=== PATIENT | male | born 1975 | race Caucasian/White ===

== ENCOUNTER 2017-09-07 09:02 | Emergency (ER) | payer OTHER, SELFPAY ==
[2017-09-07 09:21] VITALS: BP 144/78; PULSE 85; RESP 16; TEMP 98.8; O2SAT 98
--- NOTE | 2017-09-07 09:42 | C.PDOC ---
History Of Present Illness 42 y/o M c no PMHx p/w dysuria x 5 days associated with bilateral flank pain and suprapubic pain. Denies fever, chills, dyspnea, nausea, vomiting, hematuria , abnormal urine. Patient states sexually active with only. Denies penile lesions. Time Seen by Provider: 09/07/17 09:19 Chief Complaint (Nursing): Male Genitourinary Past Medical History Vital Signs: Last Vital Signs Temp 98.8 F 09/07/17 09:19 Pulse 85 09/07/17 09:19 Resp 16 09/07/17 09:19 BP 144/78 09/07/17 09:19 Pulse Ox 98 09/07/17 09:42 Family History: States: No Known Family Hx - Social History Hx Alcohol Use: No Hx Substance Use: No - Immunization History Hx Tetanus Toxoid Vaccination: No Hx Influenza Vaccination: No Hx Pneumococcal Vaccination: No Review Of Systems Except As Marked, All Systems Reviewed And Found Negative. Constitutional: Negative for: Fever Respiratory: Negative for: Shortness of Breath Physical Exam - Physical Exam Additional Physical Exam Comments: Gen: NAD Head: NC Eyes: PERRL ENT: MMM Neck: Supple Chest: No tenderness CV: Regular rate Lungs: CTA b/l Abd: Soft, suprapubic tenderness Back: No CVA tenderness : No penile lesions, no testicular tenderness or swelling. No hernias Extremities: No swelling Neuro: Alert ED Course And Treatment O2 Sat by Pulse Oximetry: 98 Medical Decision Making Medical Decision Making: FINDINGS: LOWER THORAX: Unremarkable. LIVER: Hepatic steatosis. No gross lesion or ductal dilatation. GALLBLADDER AND BILE DUCTS: Unremarkable. PANCREAS: Unremarkable. No gross lesion or ductal dilatation. SPLEEN: Unremarkable. ADRENALS: Unremarkable. No mass. KIDNEYS AND URETERS: Unremarkable. No hydronephrosis. No solid mass. VASCULATURE: Unremarkable. No aortic aneurysm. BOWEL: Unremarkable. No obstruction. No gross mural thickening. APPENDIX: Unremarkable. Normal appendix. PERITONEUM: Small fat containing left inguinal hernia. Small fat containing umbilical hernia. No free fluid. No free air. LYMPH NODES: Unremarkable. No enlarged lymph nodes. BLADDER: Underdistended, limiting evaluation for wall thickening. Perivesicular stranding. REPRODUCTIVE: Unremarkable. BONES: No acute fracture. OTHER FINDINGS: None. IMPRESSION: Perivesicular stranding raises suspicion for cystitis. Clinical correlation is recommended. No urolithiasis or evidence of recently passed genitourinary calculus. Additional incidental findings as above. Will start on Cipro, culture sent, f/u Urology, return to ED for worsening fever , vomiting, dyspnea. Disposition - Disposition Referrals: Jarred Conner MD [Staff Provider] - Disposition: HOME/ ROUTINE Disposition Time: 10:51 Condition: STABLE Prescriptions: Ciprofloxacin [Cipro] 500 mg PO BID #14 tab Instructions: Acute Cystitis (DC) Forms: [facility] (Lao) - Clinical Impression Clinical Impression: Cystitis
[2017-09-07 09:50] LABS: URINE BILIRUBIN NEGATIVE (NEGATIVE); URINE BLOOD NEGATIVE (NEGATIVE); URINE CLARITY Hazy (Clear); URINE COLOR Yellow (YELLOW); URINE GLUCOSE (UA) NORMAL (Normal); URINE LEUKOCYTE ESTERASE NEG Leu/uL (Negative); URINE PROTEIN NEGATIVE (NEGATIVE); URINE UROBILINOGEN NORMAL mg/dL (0.2-1.0)
--- NOTE | 2017-09-07 10:37 | CT ---
PROCEDURE: CT Abdomen and Pelvis without intravenous contrast HISTORY: flank pain COMPARISON: None. TECHNIQUE: Contiguous images were obtained from the domes of the diaphragms to the upper thighs without the administration of intravenous contrast. Oral contrast was not administered. Radiation dose: Total exam DLP = 637.4 mGy-cm. This CT exam was performed using one or more of the following dose reduction techniques: Automated exposure control, adjustment of the mA and/or kV according to patient size, and/or use of iterative reconstruction technique. FINDINGS: LOWER THORAX: Unremarkable. LIVER: Hepatic steatosis. No gross lesion or ductal dilatation. GALLBLADDER AND BILE DUCTS: Unremarkable. PANCREAS: Unremarkable. No gross lesion or ductal dilatation. SPLEEN: Unremarkable. ADRENALS: Unremarkable. No mass. KIDNEYS AND URETERS: Unremarkable. No hydronephrosis. No solid mass. VASCULATURE: Unremarkable. No aortic aneurysm. BOWEL: Unremarkable. No obstruction. No gross mural thickening. APPENDIX: Unremarkable. Normal appendix. PERITONEUM: Small fat containing left inguinal hernia. Small fat containing umbilical hernia. No free fluid. No free air. LYMPH NODES: Unremarkable. No enlarged lymph nodes. BLADDER: Underdistended, limiting evaluation for wall thickening. Perivesicular stranding. REPRODUCTIVE: Unremarkable. BONES: No acute fracture. OTHER FINDINGS: None. IMPRESSION: Perivesicular stranding raises suspicion for cystitis. Clinical correlation is recommended. No urolithiasis or evidence of recently passed genitourinary calculus. Additional incidental findings as above.
== END 2017-09-07 10:57 | disposition home or self-care (01) ==
LOC: C.ER 09:02
DX: N30.90 Cystitis, unspecified without hematuria (principal)

== ENCOUNTER 2018-02-26 19:46 | Emergency (ER) | payer OTHER ==
[2018-02-26 19:56] VITALS: O2SAT 100
[2018-02-26 20:44] LABS: BASO # 0.1 K/uL (0.0-0.2); BASO % 0.5 % (0.0-2.0); EOS % 0.3 % (0.0-4.0); HEMOGLOBIN 14.2 g/dL (12.0-18.0); LYMPH # 6.1 K/uL (1.0-4.3); LYMPH % 44.8 % (20.0-40.0); MEAN CELL VOLUME 85.7 fL (80.0-94.0); MEAN CORPUSCULAR HEMOGLOBIN 30.3 pg (27.0-31.0); MEAN CORPUSCULAR HGB CONC 35.4 g/dL (33.0-37.0); MONO # 1.1 K/uL (0.0-0.8); NEUT # 6.3 K/uL (1.8-7.0); NEUT % 46.4 % (50.0-75.0); NRBC % 0.1 % (0.0-2.0); RBC 4.67 Mil/uL (4.40-5.90); RED CELL DISTRIBUTION WIDTH 13.2 % (11.5-14.5); WHITE BLOOD COUNT 13.7 K/uL (4.8-10.8)
[2018-02-26 20:48] LABS: ALB/GLOB RATIO 1.3 (1.0-2.1); ALBUMIN 4.6 g/dL (3.5-5.0); ALT/SGPT 38 U/L (21-72); AST/SGOT 35 U/L (17-59); BLOOD UREA NITROGEN 15 mg/dL (9-20); CALCIUM 9.4 mg/dl (8.6-10.4); GFR NON-AFRICAN AMERICAN > 60
[2018-02-26 21:27] VITALS: BP 130/85; PULSE 81; RESP 20; TEMP 98.6
--- NOTE | 2018-02-26 22:14 | C.PDOC ---
History Of Present Illness 42 year old male presents to the ER with a complaint of palpitations for the past month. Patient states when she has them she feels a slight sharp substernal pain. She is currently asymptomatic and denies SOB or other complaints. Chief Complaint (Nursing): Palpitations History Per: Patient History/Exam Limitations: no limitations Onset/Duration Of Symptoms: Days Current Symptoms Are (Timing): Still Present Recent travel outside of the [place]: No Past Medical History Reviewed: Historical Data, Nursing Documentation, Vital Signs Vital Signs: Last Vital Signs Temp 98.6 F 02/26/18 21:26 Pulse 81 02/26/18 21:26 Resp 20 02/26/18 21:26 BP 130/85 02/26/18 21: Pulse Ox 100 02/26/18 21:26 Family History: States: Unknown Family Hx - Social History Hx Alcohol Use: No Hx Substance Use: No - Immunization History Hx Tetanus Toxoid Vaccination: No Hx Influenza Vaccination: No Hx Pneumococcal Vaccination: No Review Of Systems Constitutional: Negative for: Fever, Chills Cardiovascular: Positive for: Palpitations Respiratory: Negative for: Cough, Shortness of Breath Gastrointestinal: Negative for: Nausea, Vomiting Skin: Negative for: Rash Neurological: Negative for: Weakness, Numbness Physical Exam - Physical Exam Appears: Non-toxic Skin: Normal Color, Warm, Dry, No Rash Head: Atraumatic, Normacephalic Eye(s): bilateral: Normal Inspection Oral Mucosa: Moist Neck: Normal, Supple Chest: Symmetrical, No Tenderness Cardiovascular: Rhythm Regular Respiratory: Normal Breath Sounds, No Rales, No Rhonchi, No Wheezing Gastrointestinal/Abdominal: Soft, No Tenderness Back: No CVA Tenderness Extremity: Normal ROM (x4) Neurological/Psych: Oriented x3, Normal Speech Gait: Steady ED Course And Treatment - Laboratory Results Result Diagrams: 02/26/18 20:32 02/26/18 20:32 O2 Sat by Pulse Oximetry: 100 (Room air) Pulse Ox Interpretation: Normal Progress Note: EKG, blood work, and CXR ordered. Disposition - Disposition Referrals: [facility] [Outside] [facility] at [facility] [Outside] Disposition: HOME/ ROUTINE Disposition Time: 21:15 Condition: GOOD Additional Instructions: LYNDON RODRIGES, thank you for letting us take care of you today. The emergency medical care you received today was directed at your acute symptoms. If you were prescribed any medication, please fill it and take as directed. It may take several days for your symptoms to resolve. Return to the Emergency Department if your symptoms worsen, do not improve, or if you have any other problems. Please contact your doctor or call one of the physicians/clinics you have been referred to that are listed on the Patient Visit Information form that is included in your discharge packet. Bring any paperwork you were given at discha rge with you along with any medications you are taking to your follow up visit. Our treatment cannot replace ongoing medical care by a primary care provider outside of the emergency department. Thank you for allowing the [facility] team to be part of your care today. Follow up with the clinic this week for outpatient care and re-evaluation. LYNDON RODRIGES, danyelle por dejarnos cuidar de vaishali ross. La atencin mdica de emergencia que recibi hoy se dirigi a willian sntomas agudos. Si le recetaron algn medicamento, llnelo y tmelo segn las indicaciones. Los sntomas pueden tardar varios marroquin en resolverse. Regrese al Departamento de Emergencias si willian sntomas empeoran, no mejoran o si tiene otros problemas. Comunquese con hernandez mdico o llame a dimitris de los mdicos / clnicas a los que damon sido referido que figuran en el formulario de Informacin de visita al paciente que se incluye en hernandez paquete de garrett. Lleve con vaishali a hernandez consulta de seguimiento toda la documentacin que recibi del garrett junto con los medicamentos que est tomando. Nuestro tratamiento no puede reemplazar la atencin mdica continua por parte de un proveedor de atencin primaria fuera del departamento de emergencias. Danyelle por permitir que el equipo de [facility] sea parte de hernandez atencin cody. Kamlesh un seguimiento con la clnica esta semana para la atencin ambulatoria y la reevaluacin. Instructions: Palpitations (DC) Forms: Gen Discharge Inst Micronesian, [facility] (Micronesian) Print Language: HUNGARIAN - Clinical Impression Clinical Impression: Palpitations - Scribe Statement The provider has reviewed the documentation as recorded by the Scribe Christian Kwok All medical record entries made by the Scribe were at my direction and personally dictated by me. I have reviewed the chart and agree that the record accurately reflects my personal performance of the history, physical exam, medical decision making, and the department course for this patient. I have also personally directed, reviewed, and agree with the discharge instructions and disposition.
--- NOTE | 2018-02-27 07:29 | RAD ---
Chest x-ray single frontal view HISTORY: Chest pain. COMPARISON: None available. FINDINGS: Mild venous congestion. Right hilar prominence. Heart size within normal limits. Degenerative changes in the spine and shoulders. IMPRESSION: Mild venous congestion. Right hilar prominence.
--- NOTE | 2018-02-27 13:13 | CARD ---
APPROVED REPORT Date of service: 02/26/2018 EKG Measurement Heart [id number] <Conclusion> Normal sinus rhythm Normal ECG
== END 2018-02-26 21:40 | disposition home or self-care (01) ==
LOC: C.ER 19:46
DX: R00.2 Palpitations (principal)

== ENCOUNTER 2018-06-10 10:18 | Emergency (ER) | payer OTHER ==
[2018-06-10 10:37] VITALS: BMI 28.9
--- NOTE | 2018-06-10 10:42 | C.PDOC ---
History Of Present Illness 43 year old male presents to the ED for evaluation of bilateral upper and lower back pain that has been intermittent for 3 weeks. Patient reports pain starts at his bilateral shoulder and radiates to his bilateral lower back regions. 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 Patient has been taking Motrin and Tylenol with transient relief. Patient denies fever, chills, abdominal pain, urinary symptoms, urinary/bowel incontinence, extremity numbness/weakness. Time Seen by Provider: 06/10/18 10:38 Chief Complaint (Nursing): Back Pain History Per: Patient History/Exam Limitations: no limitations Onset/Duration Of Symptoms: Intermittent Episodes (3 weeks ) Current Symptoms Are (Timing): Still Present Quality Of Discomfort: "Pain" Previous Symptoms: Back Pain Associated Symptoms: denies: Incontinence, New Weakness, New Numbness Additional History Per: Patient Past Medical History Reviewed: Historical Data, Nursing Documentation, Vital Signs - Medical History PMH: No Chronic Diseases Surgical History: No Surg Hx Family History: States: Unknown Family Hx - Social History Hx Alcohol Use: No Hx Substance Use: No - Immunization History Hx Tetanus Toxoid Vaccination: No Hx Influenza Vaccination: No Hx Pneumococcal Vaccination: No Review Of Systems Constitutional: Negative for: Fever, Chills Gastrointestinal: Negative for: Abdominal Pain Genitourinary: Negative for: Dysuria, Frequency, Incontinence, Hematuria Musculoskeletal: Positive for: Back Pain (upper and lower, bilaterally ) Neurological: Negative for: Weakness, Numbness Physical Exam - Physical Exam Appears: Non-toxic, No Acute Distress Skin: Normal Color, Warm, Dry Head: Atraumatic, Normacephalic Eye(s): bilateral: Normal Inspection Oral Mucosa: Moist Neck: Supple Chest: Symmetrical, No Deformity, No Tenderness Cardiovascular: Rhythm Regular, No Murmur Respiratory: Normal Breath Sounds, No Rales, No Rhonchi, No Wheezing Back: No Vertebral Tenderness, Muscle Spasm, No Paraspinal Tenderness, No Other (bony tenderness ) Extremity: Normal ROM, Capillary Refill (less than 2 seconds ) Neurological/Psych: Oriented x3, Normal Speech, Normal Cognition, Normal Motor, Normal Sensation Gait: Steady ED Course And Treatment O2 Sat by Pulse Oximetry: 100 (on RA) Pulse Ox Interpretation: Normal Medical Decision Making Medical Decision Making: Progress: Tylenol PO, Flexeril PO and Motrin PO given. On reassessment, patient is resting comfortably, showing no signs of distress and states his symptoms have resolved. Patient is ambulatory in the ED without distress and is stable for discharge. Patient advised to f/u with PMD within 1-2 days for further evaluation. Return if worse. Disposition Counseled Patient/Family Regarding: Diagnosis, Need For Followup, Rx Given - Disposition Referrals: [facility] at [facility] [Outside] Disposition: HOME/ ROUTINE Disposition Time: 12:17 Condition: STABLE Prescriptions: Cyclobenzaprine [Cyclobenzaprine HCl] 10 mg PO BID #10 tab Ibuprofen [Motrin] 600 mg PO TID #15 tab Forms: Gen Discharge Inst Welsh, [facility] (Welsh), Work Excuse - POA Present On Arrival: None - Clinical Impression Clinical Impression: Low back pain - Scribe Statement The provider has reviewed the documentation as recorded by the Scribe (Verena Sandoval) Provider Attestation: All medical record entries made by the Scribe were at my direction and personally dictated by me. I have reviewed the chart and agree that the record accurately reflects my personal performance of the history, physical exam, medical decision making, and the department course for this patient. I have also personally directed, reviewed, and agree with the discharge instructions and disposition.
[2018-06-10 12:44] VITALS: BP 108/69; PULSE 63; RESP 18; TEMP 98.4; O2SAT 100
== END 2018-06-10 12:56 | disposition home or self-care (01) ==
LOC: C.ER 10:18
DX: M54.5 Low back pain (principal)